=== PATIENT | male | born 1995 | race Caucasian/White ===

== ENCOUNTER 2017-03-31 04:27 | Inpatient (IN) | payer BC ==
[2017-03-27 11:40] LABS: BASOPHILS 0.4 %; BASOPHILS ABSOLUTE 0.03 10/3/uL (0.0-0.16); EOSINOPHILS 3.1 %; EOSINOPHILS ABSOLUTE 0.25 10/3/uL (0.0-0.53); IMMATURE GRANULOCYTES 0.1 %; IMMATURE GRANULOCYTES ABSOLUTE 0.01 10/3/uL (0.0-0.11); LYMPHOCYTES 34.7 %; LYMPHOCYTES ABSOLUTE 2.82 10/3/uL (0.67-4.30); MEAN PLATELET VOLUME 9.4 fL (9.2-13.0); MONOCYTES 7.8 %; MONOCYTES ABSOLUTE 0.63 10/3/uL (0.21-1.20); NEUTROPHILS 53.9 %; NEUTROPHILS ABSOLUTE 4.38 10/3/uL (2.02-8.40); RED CELL COUNT 4.75 10/6/uL (4.7-6.1); WHITE BLOOD CELLS 8.1 10/3/uL (4.5-10.5)
[2017-03-27 11:41] LABS: HEMATOCRIT 32.3 % (40.0-51.0); MANUAL DIFF NO %; MEAN CORPUSCULAR HEMOGLOB 21.1 pg (26.0-34.0); PLATELET COUNT 364 10/3/uL (150-400); RBC DISTRIBUTION WIDTH 18.8 % (12.0-16.0)
[2017-03-27 11:47] LABS: INTERNATIONAL NORMAL RATI 1.1 UNITS (-); PARTIAL THROMBO TIME 34.2 SEC (22.5-37.2); PROTIME (NOT ORD) 14.3 SEC (12.0-14.5)
[2017-03-27 11:54] LABS: ALBUMIN 3.6 G/DL (3.5-5.0); ALKALINE PHOSPHATASE 103 U/L (45-117); CALCIUM, SERUM 9.1 MG/DL (8.5-10.4); CHLORIDE, SERUM 105 MMOL/L (96-112); CO2 (CARBON DIOXIDE) 31 MMOL/L (24-34); CREATININE 0.88 MG/DL (0.70-1.30); GFR AFRICAN AMERICAN 140 ML/MIN (>=60); GFR NON AFRICAN AMERICAN 121 ML/MIN (>=60); GLOBULIN 3.6 G/DL (2.5-4.1); GLUCOSE, SERUM 93 MG/DL (60-99); POTASSIUM, SERUM 3.9 MMOL/L (3.5-5.3); SGOT(AST) 9 U/L (5-40); SGPT(ALT) 15 U/L (5-65); SODIUM, SERUM 141 MMOL/L (135-148); TOTAL BILIRUBIN 0.2 MG/DL (0-1.2); TOTAL PROTEIN 7.2 G/DL (6.0-8.5)
[2017-03-27 11:55] LABS: BUN (BLOOD UREA NITROGEN) 13 MG/DL (6-23)
[2017-03-27 11:57] LABS: ANISOCYTOSIS 1+ (5-10/OIF) (0-5/OIF); PLATELET ESTIMATE ADQ (ADEQUATE); RBC MORPHOLOGY ABN (NORMAL); TEARDROP SHAPED RBCS OCC (0-2/OIF)
[2017-03-27 12:23] LABS: CEA 4.1 NG/ML
--- NOTE | ~2017-03-31 | PREOPHP ---
PreOp History and Physical [place] [id number] [place] [place]. [address] NAME: CACHORRO CARR : 89 STATUS : ADM IN [facility]#: [id number] AGE: 21 ADM/REG DATE : 03/31/17 MR#: [id number] REPORT SERV DATE: 03/31/17 DICTATED BY: ABDIRASHID ADAIR III DATE: 03/25/17 REPORT STATUS : Draft TRANSCRIBED BY: MODL DATE: 03/25/17 HISTORY OF PRESENT ILLNESS: This 21-year-old male comes to the operating for laparoscopic transverse colectomy, possible laparotomy, for biopsy-proven cancer of the transverse colon. The patient recently was found to have anemia. He underwent colonoscopy. He was found to have a large obstructing mass of the distal transverse colon. His workup shows a possible mesenteric adenopathy with no evidence for distal disease. He comes now for laparoscopic distal transverse colectomy, possible laparotomy. The fact that this is a major operation with risk for major morbidity and mortality has been explained to the patient. 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 Consideration for total colectomy with reconstruction has been made with the patient. Based on the extent of his disease, it was felt that consideration for total colectomy should be made at a later date. The patient wishes to have his primary malignancy treated at this time and is not interested in total colectomy. PAST MEDICAL HISTORY: Essentially unremarkable. No history of diabetes, hypertension, cardiac or pulmonary disease. MEDICATIONS: None regularly. ALLERGIES: NONE. FAMILY HISTORY: Positive for multiple family members with colon cancer. SOCIAL HISTORY: The patient has a previous tobacco use. He has no history of alcohol use. REVIEW OF SYSTEMS: The patient's 14-point review of systems is essentially unremarkable. OBJECTIVE PHYSICAL EXAM: GENERAL: This is a male, in no acute distress. He is alert and oriented x3. VITAL SIGNS: Blood pressure 130/75, pulse 79, temperature 99.1. HEENT: Unremarkable. Cranial nerves 2 through 12 are normal. LUNGS: Clear. CARDIAC: Normal. ABDOMEN: Soft and nontender. No masses. EXTREMITIES: Normal without edema. LABORATORY DATA: Colonoscopy shows a large malignant-appearing mass at 80 cm. The colonoscope could not pass proximal to this. CT scan of the thorax, abdomen, and pelvis shows a large mass in the distal transverse colon with possible mesenteric adenopathy and no evidence for distal disease. Biopsy of the mass shows it to be a poorly differentiated adenocarcinoma. 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 PreOp History and Physical [address] [place]. [address] NAME: CACHORRO CARR : 93 STATUS : ADM IN PAT#: [id number] AGE: 21 ADM/REG DATE : 03/31/17 MR#: [id number] REPORT SERV DATE: 03/31/17 DICTATED BY: ABDIRASHID ADAIR III DATE: 03/25/17 REPORT STATUS : Draft TRANSCRIBED BY: JULIETTE DATE: 03/25/17 PLAN: The patient comes to the operating room now for laparoscopic transverse colectomy, possible laparotomy. The fact that this is a major operation with risk for major morbidity and mortality has been explained to the patient and family. The procedure, risks, benefits, and alternatives, including, but not limited to the risk for bleeding, infection, enterotomy, injury to any abdominal structure, postop small bowel obstruction, ileus, incisional hernia, dehiscence, anastomotic leak resulting in peritonitis, sepsis, and , and requiring reoperation, colostomy, injury to the spleen requiring splenectomy, ureteral injury, and unforeseen complications including deep venous thrombosis, pulmonary embolus, myocardial infarction, stroke, pneumonia, and , have been fully and completely explained to the patient and his family. The fact that this is a major operation with risk for major morbidity and mortality has been explained. The expected length of recovery has been explained. The patient had questions, which have been answered. He clearly understands the risks and agrees to surgery as planned. LOREN/JULIETTE Abdirashid Adair III, M.D. / [id number]
--- NOTE | ~2017-03-31 | OP ---
Record Of Operation [facility] [address] [place]. [address] NAME: CACHORRO CARR : 89 STATUS : ADM IN [facility]#: [id number] AGE: 21 ADM/REG DATE : 03/31/17 MR#: [id number] REPORT SERV DATE: 03/31/17 DICTATED BY: ABDIRASHID ACOSTA III DATE: 03/31/17 REPORT STATUS : Draft TRANSCRIBED BY: MODL DATE: 03/31/17 DATE OF PROCEDURE: 03/31/2017 PREOPERATIVE DIAGNOSIS: Biopsy-proven cancer of the distal transverse colon. POSTOPERATIVE DIAGNOSIS: Biopsy-proven cancer of the distal transverse colon. PROCEDURE: Laparoscopic resection of distal transverse colon. SURGEON: Abdirashid Aocsta M.D. ANESTHESIA: General with intubation. COMPLICATIONS: None. ESTIMATED BLOOD LOSS: 30 mL. SPECIMENS: Distal transverse colon. DRAINS: New in the subcutaneous tissue. LAP AND SPONGE COUNT: Correct x3. BRIEF HISTORY: This 21-year-old male presented with a biopsy-proven obstructing cancer of the distal transverse colon. His workup showed no evidence for metastatic disease. It was felt that laparoscopic resection of the involved portion of the colon, possible laparotomy, was indicated. This procedure, the risks, benefits, and alternatives, including but not limited to the risk of bleeding, infection, enterotomy, injury to abdominal structure, postop small bowel obstruction, ileus, incisional hernia, dehiscence, injury to the spleen requiring splenectomy, ureteral injury, anastomotic leak requiring reoperation, colostomy, and unforeseen complications including deep venous thrombosis, pulmonary embolus, myocardial infarction, stroke, pneumonia, and , were fully and completely explained to the patient and his family prior to surgery. The fact that this was a major operation with risk for major morbidity and mortality was explained as well as the expected length of recovery of both open and laparoscopic procedures. The patient had questions which were answered. He understood the risks and agreed to the surgery as planned. FINDINGS: The patient had an extremely large cancer of the distal transverse colon. There was no evidence for carcinomatosis or peritoneal implants. The resection was performed with clear margins. PROCEDURE IN DETAIL: After being properly identified and after discussing the risks of surgery with the patient and his family again in the preoperative area, the patient was taken to the operating room and placed in the supine position on the operating room table. General anesthesia was administered and he was intubated without difficulty. A Cutler catheter was inserted. The abdomen was prepped and draped sterilely in the usual fashion. Record Of Operation [facility] [address] [place]. [address] NAME: CACHORRO CARR : 93 STATUS : ADM IN PAT#: [id number] AGE: 21 ADM/REG DATE : 03/31/17 MR#: [id number] REPORT SERV DATE: 03/31/17 DICTATED BY: ABDIRASHID ACOSTA III DATE: 03/31/17 REPORT STATUS : Draft TRANSCRIBED BY: MODL DATE: 03/31/17 After an appropriate "time-out" per [facility] standards, a small incision was made just below the umbilicus. The skin and fascia on either side of this were elevated with towel clips. A Veress needle was placed through the incision into the peritoneal cavity. Correct position of the needle in the peritoneal cavity was confirmed by the hanging drop test. The abdominal cavity was then insufflated to about 13 mmHg of carbon dioxide. Correct position of air in the peritoneal cavity was confirmed by palpation. The Veress needle was removed and replaced with a 10 mm trocar. The laparoscope was placed through this. The patient was placed in the reverse Trendelenburg position. The abdomen was inspected. The tumor was identified at the distal transverse colon. It was marked by the endoscopist. There was no evidence for peritoneal implants or metastatic disease. A 5 mm trocar was then placed along the left lateral abdominal wall lateral to the navel and another one placed in the left upper quadrant. These were placed under direct vision with the laparoscope. Appropriate instruments were placed through the trocars. The transverse colon was elevated. Using sharp dissection, the omentum was carefully dissected away from the transverse colon in the appropriate area. The colon was very mobile. After adequate mobilization, a small incision was made along the left subcostal margin, directly over the tumor, about 2 cm below the costal margin. The incision was continued through the subcutaneous tissue. Hemostasis was controlled with cautery. The incision was continued through all layers of fascia. The distal transverse colon was mobilized into the wound. The patient had obvious large cancer in this area. We selected for division of the transverse colon at 4 to 5 cm proximal to the tumor. A window was made in the mesentery of the colon at this point. A OLEG stapler was used about the colon at this point. We then selected a point for division of the colon distal to the tumor, by 4 to 5 cm. A window was made in the mesentery to the colon at this point and the colon was divided at this point. It should be noted that the patient's transverse colon was very long and redundant. The mesentery to this portion of the colon was then divided using Harmonic scalpel. The gastrocolic ligament was also divided and flushed with the stomach. The mesentery was divided at its base so as to perform a correct oncologic dissection to the lymphovascular supply to this portion of the colon. This portion of the colon was thus removed and oriented with sutures and sent to pathology. It was interpreted as containing the tumor with clear margins. We then performed a [id number] anastomosis between the divided proximal and distal colon. This was performed by aligning the antimesenteric border of the colon proximally and distally with interrupted 3-0 silk sutures. A small opening was then made in the antimesenteric border of the colon proximally and distally and a OLEG stapler was placed through this and fired. The defect created by the stapler was then closed in two layers, using running 3-0 chromic suture on the inner layer and interrupted 3-0 silk sutures on the outer anterior layer. The stapled end of each portion of the colon was also oversewn with interrupted 3-0 silk sutures. Upon completion of this, the anastomosis was widely patent to palpation, it was not twisted or kinked in anyway and was not under any tension. The area was irrigated copiously with saline. Hemostasis was assured. The fascia was closed with a running looped #1 PDS suture. The subcutaneous tissue was closed with running 3-0 chromic Record Of Operation [facility] [address] [facility] [place]. [address] NAME: CACHORRO CARR FILEMON : 89 STATUS : ADM IN [facility]#: [id number] AGE: 21 ADM/REG DATE : 03/31/17 MR#: [id number] REPORT SERV DATE: 03/31/17 DICTATED BY: ABDIRASHID ACOSTA III DATE: 03/31/17 REPORT STATUS : Draft TRANSCRIBED BY: MODL DATE: 03/31/17 suture over a New drain which was brought through the inferior aspect of the incision. The subcutaneous tissue was closed with a running 3-0 chromic suture over a [place] drain which was brought out through the lateral aspect of the incision. The skin was closed with running subcuticular 4-0 Monocryl stitch. Dressings were applied. Anesthesia was reversed. The patient was taken to the recovery room in stable condition. The infraumbilical incision was closed by closing the fascia with a 0 Vicryl suture. All trocar sites and skin incisions were closed with running subcuticular 4-0 Monocryl stitches. They were injected with 0.5% Marcaine. Dressings were applied. Anesthesia was reversed. The patient was taken to the recovery room in stable condition. He tolerated the procedure well. His family was informed of the results of surgery. The patient will remain in the hospital for postoperative care. RHJ/MODL Abdirashid Acosta III, M.D. / [id number] CC: Skyler Matos III, M.D.
[~2017-03-31 04:27] MED LIST: XYZAL5 MG PO
[2017-04-01 06:24] LABS: BASOPHILS 0.1 %; BASOPHILS ABSOLUTE 0.01 10/3/uL (0.0-0.16); EOSINOPHILS 0.2 %; EOSINOPHILS ABSOLUTE 0.02 10/3/uL (0.0-0.53); HEMATOCRIT 31.4 % (40.0-51.0); HEMOGLOBIN 9.8 g/dL (13.6-17.8); IMMATURE GRANULOCYTES 0.2 %; IMMATURE GRANULOCYTES ABSOLUTE 0.02 10/3/uL (0.0-0.11); LYMPHOCYTES ABSOLUTE 1.97 10/3/uL (0.67-4.30); MEAN CORPUS HGB CONC 31.2 g/dL (32.0-36.0); MEAN CORPUSCULAR HEMOGLOB 21.3 pg (26.0-34.0); MEAN CORPUSCULAR VOLUME 68.1 fL (80-100); MEAN PLATELET VOLUME 9.5 fL (9.2-13.0); MONOCYTES 14.4 %; MONOCYTES ABSOLUTE 1.35 10/3/uL (0.21-1.20); NEUTROPHILS 64.1 %; NEUTROPHILS ABSOLUTE 5.99 10/3/uL (2.02-8.40); PLATELET COUNT 366 10/3/uL (150-400); RBC DISTRIBUTION WIDTH 18.8 % (12.0-16.0); RED CELL COUNT 4.61 10/6/uL (4.7-6.1); WHITE BLOOD CELLS 9.4 10/3/uL (4.5-10.5)
[2017-04-01 06:27] LABS: MANUAL DIFF NO %
[2017-04-01 06:36] LABS: BUN (BLOOD UREA NITROGEN) 4 MG/DL (6-23); CALCIUM, SERUM 8.9 MG/DL (8.5-10.4); CHLORIDE, SERUM 110 MMOL/L (96-112); CO2 (CARBON DIOXIDE) 27 MMOL/L (24-34); CREATININE 0.78 MG/DL (0.70-1.30); GFR AFRICAN AMERICAN 147 ML/MIN (>=60); GFR NON AFRICAN AMERICAN 127 ML/MIN (>=60); GLUCOSE, SERUM 140 MG/DL (60-99); SODIUM, SERUM 144 MMOL/L (135-148)
[2017-04-01 07:13] LABS: ANISOCYTOSIS 1+ (5-10/OIF) (0-5/OIF); PLATELET ESTIMATE ADQ (ADEQUATE)
[2017-04-01 07:14] LABS: POLYCHROMASIA 1+ (2-5/OIF) (0-1/OIF)
[2017-04-01 07:15] LABS: HYPOCHROMIA 1+ (3-10/OIF) (0-2/OIF); OVALOCYTES 1+ (3-10/OIF) (0-2/OIF)
[2017-04-02 06:14] LABS: BASOPHILS 0.3 %; BASOPHILS ABSOLUTE 0.03 10/3/uL (0.0-0.16); EOSINOPHILS 1.6 %; EOSINOPHILS ABSOLUTE 0.17 10/3/uL (0.0-0.53); HEMATOCRIT 33.7 % (40.0-51.0); HEMOGLOBIN 10.3 g/dL (13.6-17.8); IMMATURE GRANULOCYTES 0.2 %; IMMATURE GRANULOCYTES ABSOLUTE 0.02 10/3/uL (0.0-0.11); LYMPHOCYTES 35.2 %; LYMPHOCYTES ABSOLUTE 3.78 10/3/uL (0.67-4.30); MANUAL DIFF NO %; MEAN CORPUS HGB CONC 30.6 g/dL (32.0-36.0); MEAN CORPUSCULAR HEMOGLOB 21.1 pg (26.0-34.0); MEAN CORPUSCULAR VOLUME 69.1 fL (80-100); MEAN PLATELET VOLUME 9.2 fL (9.2-13.0); MONOCYTES 8.8 %; MONOCYTES ABSOLUTE 0.95 10/3/uL (0.21-1.20); NEUTROPHILS 53.9 %; NEUTROPHILS ABSOLUTE 5.79 10/3/uL (2.02-8.40); PLATELET COUNT 404 10/3/uL (150-400); RBC DISTRIBUTION WIDTH 19.6 % (12.0-16.0); RED CELL COUNT 4.88 10/6/uL (4.7-6.1); WHITE BLOOD CELLS 10.7 10/3/uL (4.5-10.5)
[2017-04-02 06:27] LABS: BUN (BLOOD UREA NITROGEN) 3 MG/DL (6-23); CALCIUM, SERUM 9.1 MG/DL (8.5-10.4); CHLORIDE, SERUM 110 MMOL/L (96-112); CO2 (CARBON DIOXIDE) 31 MMOL/L (24-34); CREATININE 0.77 MG/DL (0.70-1.30); GFR AFRICAN AMERICAN 148 ML/MIN (>=60); GFR NON AFRICAN AMERICAN 128 ML/MIN (>=60); GLUCOSE, SERUM 94 MG/DL (60-99); POTASSIUM, SERUM 3.6 MMOL/L (3.5-5.3); SODIUM, SERUM 143 MMOL/L (135-148)
[2017-04-02 06:33] LABS: ANISOCYTOSIS 1+ (5-10/OIF) (0-5/OIF); PLATELET ESTIMATE SLT INC (ADEQUATE)
[2017-04-02] MEDS ORDERED: PERCOCET 7.5/321 TAB PO (08:31)
[2017-04-24] MEDS ORDERED: X5 PO (15:25)
== END 2017-04-02 14:34 | disposition home or self-care (01) | DRG 330 ==
LOC: SDC/OF 04:27 → PACU 09:01 → 5SO 11:59
PROVIDERS: Surgery
PROC: 0DBL4ZZ Excision of Transverse Colon, Percutaneous Endoscopic Approach (ICD-10-PCS; principal; 2017-03-31 06:45)
DX: C18.4 Malignant neoplasm of transverse colon (principal); C77.2 Secondary and unspecified malignant neoplasm of intra-abdominal lymph nodes; D64.9 Anemia, unspecified; Z80.0 Family history of malignant neoplasm of digestive organs
CPT/HCPCS: 36415; 71020; 80048; 80053; 82378; 85025; 85610; 85730; 86850; 86900; 86901; 88307; 88309; 88313; 93005; A9270-GY; J0690; J1170; J1885; J2250; J2270; J2405; J2550; J2710; J2795; J3010; P9045

== ENCOUNTER 2017-04-04 19:36 | Inpatient (IN) | payer BC ==
--- NOTE | ~2017-04-04 | HP ---
History And Physical [address] [place]. [address] NAME: CACHORRO CARR : 93 STATUS : ADM IN [facility]#: [id number] AGE: 21 ADM/REG DATE : 04/04/17 MR#: [id number] REPORT SERV DATE: 04/05/17 DICTATED BY: ABDIRASHID ACOSTA III DATE: 04/05/17 REPORT STATUS : Draft TRANSCRIBED BY: MODL DATE: 04/05/17 DATE OF ADMISSION: 04/04/2017 HISTORY OF PRESENT ILLNESS: This 21-year-old was admitted hospital emergently with nausea and vomiting. The patient complains of a one-day history of crampy abdominal pain. This has been associated with profuse nausea and vomiting. Based on these symptoms, I felt that emergent admission to the hospital is indicated. The patient is status post a recent transverse colectomy for a large cancer of the transverse colon. The patient's postoperative recovery was uneventful. At the time of discharge, he was tolerating diet well with normal bowel function. The patient states that these symptoms began on the day of admission. The patient has had no fever or chills. He has had no diarrhea. PAST MEDICAL HISTORY: History of transverse colon cancer, status post recent laparoscopic transverse colectomy with primary anastomosis with good recovery. This was a large cancer, with final pathology showing this to be a T3 N1a cancer. MEDICATIONS: None regularly. ALLERGIES: NONE. FAMILY HISTORY: Positive for multiple family members with colon cancer. SOCIAL HISTORY: The patient has a previous history of tobacco use. He has no history of alcohol use. He is not . REVIEW OF SYSTEMS: Patient's 14-point review of systems is otherwise unremarkable. PHYSICAL EXAMINATION: GENERAL: This is a male, in no acute distress. He is alert and oriented x3. VITAL SIGNS: Blood pressure 131/79, temperature 98.6, pulse 92. HEENT: Unremarkable. Cranial nerves 2 through 12 are normal. LUNGS: Clear. CARDIAC: Normal. ABDOMEN: Soft, nontender. He has a well-healed left subcostal incision. EXTREMITIES: Normal with no edema. LABORATORY DATA: Electrolytes are unremarkable. Glucose is 121. White blood cell count 9.4. KUB shows a benign gas pattern. ASSESSMENT: 1. A 21-year-old male with nausea and vomiting, most likely secondary to ileus. 2. History of a T3 N1 colon cancer, status post recent laparoscopic transverse colectomy. PLAN: The patient has been admitted and started on parenteral fluids and bowel rest. If he has further vomiting, an NG-tube will be placed. I have started the patient on Reglan. At [facility] [address] [place] [address] NAME: CACHORRO CARR : 89 STATUS : ADM IN [facility]#: [id number] AGE: 21 ADM/REG DATE : 04/04/17 MR#: [id number] REPORT SERV DATE: 04/05/17 DICTATED BY: ABDIRASHID ACOSTA III DATE: 04/05/17 REPORT STATUS : Draft TRANSCRIBED BY: JULIETTE DATE: 04/05/17 this time, there is no need for acute surgical intervention. This plan has been explained to the patient. His questions have been answered. He understands and agrees to this as planned. Mary Alice/JULIETTE Abdirashid Acosta III, M.D. / [id number] CC: Skyler Matos III, MICHAEL F
--- NOTE | ~2017-04-04 | DS ---
Discharge Summary [facility] [address] [facility] [place]. [address] NAME: CACHORRO CARR : 89 STATUS : DIS IN PAT#: [id number] AGE: 21 ADM/REG DATE : 04/04/17 MR#: [id number] REPORT SERV DATE: 04/15/17 DICTATED BY: ABDIRASHID ACOSTA III DATE: 04/15/17 REPORT STATUS : Draft TRANSCRIBED BY: JULIETTE DATE: 04/15/17 Data Collection from hospitalization DISCHARGE DIAGNOSES: 1. Status post ileus or small-bowel obstruction-resolved. 2. History of transverse colon cancer, status post recent laparoscopic transverse colectomy with primary anastomosis. 3. Former tobacco. CONSULTATIONS: None. PROCEDURES: None. DISCHARGE MEDICATIONS: Sera 180 mg daily. CONDITION AT DISCHARGE: Stable. DISPOSITION: The patient was discharged home on a regular diet with activities as instructed. He would follow up with me in one to two weeks following discharge. HOSPITAL COURSE: This is a 21-year-old man, who was admitted to the hospital emergently with nausea and vomiting. He complained of a one-day history of crampy abdominal pain. This was associated with profuse nausea and vomiting. Based on his symptoms, it was felt that emergent admission to the hospital was indicated. The patient is status post recent transverse colectomy for a large cancer of the transverse colon. His postoperative recovery had been uneventful. At the time of discharge, he was tolerating his diet well and had normal bowel function. The patient said that his symptoms began on the day of this admission. He had no fever or chills and has had no diarrhea. He was admitted to the hospital for further evaluation and treatment. Upon admission, electrolytes were unremarkable. White count was 9.4. KUB showed a benign gas pattern. The patient has a history of T3 N1 colon cancer. He is started on parental fluids and bowel rest. If he had any further vomiting, we would place an NG tube. He was started on Reglan. At this time, it was felt that there was no need for acute surgical intervention. The following day, he had some nausea after receiving a morphine injection. Protonix was being given. He was placed on Percocet. He was going to be placed on clear liquids. We would advance his diet as tolerated. Discharge planning was performed. On 04/07/2017, he said he was feeling much better and wanted to go home. He was eating well. He had no further nausea or vomiting. He had no abdominal pain. Discharge instructions were given. Due to his improved and stable condition, he was discharged home with the above stated instructions. Information collected by: Anne Clark I submit the above information as my discharge summary. TG/MODL Discharge Summary [address] [address] NAME: CACHORRO CARR : 93 STATUS : DIS IN PAT#: [id number] AGE: 21 ADM/REG DATE : 04/04/17 MR#: [id number] REPORT SERV DATE: 04/15/17 DICTATED BY: ABDIRASHID ACOSTA III DATE: 04/15/17 REPORT STATUS : Draft TRANSCRIBED BY: JULIETTE DATE: 04/15/17 Abdirashid Acosta III, M.D. / [id number] CC: Skyler Matos III, MICHAEL F
[~2017-04-04 19:36] MED LIST changes: +PERCOCET 7.5/321 TAB PO
[2017-04-05 05:48] LABS: BASOPHILS 0.2 %; BASOPHILS ABSOLUTE 0.02 10/3/uL (0.0-0.16); EOSINOPHILS 4.3 %; HEMATOCRIT 31.5 % (40.0-51.0); HEMOGLOBIN 9.7 g/dL (13.6-17.8); IMMATURE GRANULOCYTES 0.2 %; IMMATURE GRANULOCYTES ABSOLUTE 0.02 10/3/uL (0.0-0.11); LYMPHOCYTES 19.6 %; LYMPHOCYTES ABSOLUTE 1.84 10/3/uL (0.67-4.30); MEAN CORPUS HGB CONC 30.8 g/dL (32.0-36.0); MEAN PLATELET VOLUME 9.1 fL (9.2-13.0); MONOCYTES 8.1 %; MONOCYTES ABSOLUTE 0.76 10/3/uL (0.21-1.20); NEUTROPHILS 67.6 %; NEUTROPHILS ABSOLUTE 6.33 10/3/uL (2.02-8.40); PLATELET COUNT 340 10/3/uL (150-400); RBC DISTRIBUTION WIDTH 19.6 % (12.0-16.0); RED CELL COUNT 4.63 10/6/uL (4.7-6.1); WHITE BLOOD CELLS 9.4 10/3/uL (4.5-10.5)
[2017-04-05 05:52] LABS: MANUAL DIFF NO %
[2017-04-05 06:04] LABS: A/G RATIO 0.8 (0.7-1.9); ALBUMIN 3.1 G/DL (3.5-5.0); ALKALINE PHOSPHATASE 92 U/L (45-117); BUN (BLOOD UREA NITROGEN) 11 MG/DL (6-23); CHLORIDE, SERUM 104 MMOL/L (96-112); CO2 (CARBON DIOXIDE) 28 MMOL/L (24-34); GFR AFRICAN AMERICAN 164 ML/MIN (>=60); GFR NON AFRICAN AMERICAN 142 ML/MIN (>=60); GLOBULIN 3.7 G/DL (2.5-4.1); GLUCOSE, SERUM 121 MG/DL (60-99); SGOT(AST) 217 U/L (5-40); SGPT(ALT) 192 U/L (5-65); SODIUM, SERUM 138 MMOL/L (135-148); TOTAL BILIRUBIN 0.2 MG/DL (0-1.2); TOTAL PROTEIN 6.8 G/DL (6.0-8.5)
[2017-04-05 06:21] LABS: ANISOCYTOSIS 1+ (5-10/OIF) (0-5/OIF); PLATELET ESTIMATE ADQ (ADEQUATE)
[2017-04-06 05:24] LABS: BASOPHILS 0.2 %; BASOPHILS ABSOLUTE 0.02 10/3/uL (0.0-0.16); EOSINOPHILS 5.1 %; EOSINOPHILS ABSOLUTE 0.42 10/3/uL (0.0-0.53); HEMATOCRIT 30.8 % (40.0-51.0); HEMOGLOBIN 9.6 g/dL (13.6-17.8); IMMATURE GRANULOCYTES 0.1 %; IMMATURE GRANULOCYTES ABSOLUTE 0.01 10/3/uL (0.0-0.11); LYMPHOCYTES 21.7 %; MEAN CORPUS HGB CONC 31.2 g/dL (32.0-36.0); MEAN CORPUSCULAR HEMOGLOB 21.2 pg (26.0-34.0); MEAN PLATELET VOLUME 9.2 fL (9.2-13.0); MONOCYTES 9.5 %; MONOCYTES ABSOLUTE 0.79 10/3/uL (0.21-1.20); NEUTROPHILS 63.4 %; NEUTROPHILS ABSOLUTE 5.24 10/3/uL (2.02-8.40); PLATELET COUNT 357 10/3/uL (150-400); RBC DISTRIBUTION WIDTH 19.6 % (12.0-16.0); RED CELL COUNT 4.53 10/6/uL (4.7-6.1); WHITE BLOOD CELLS 8.3 10/3/uL (4.5-10.5)
[2017-04-06 05:27] LABS: MANUAL DIFF NO %
[2017-04-06 05:45] LABS: CALCIUM, SERUM 9.2 MG/DL (8.5-10.4); CHLORIDE, SERUM 105 MMOL/L (96-112); CO2 (CARBON DIOXIDE) 27 MMOL/L (24-34); CREATININE 0.55 MG/DL (0.70-1.30); GFR AFRICAN AMERICAN 170 ML/MIN (>=60); GFR NON AFRICAN AMERICAN 147 ML/MIN (>=60); GLUCOSE, SERUM 127 MG/DL (60-99); POTASSIUM, SERUM 3.9 MMOL/L (3.5-5.3); SODIUM, SERUM 138 MMOL/L (135-148)
[2017-04-06 05:46] LABS: BUN (BLOOD UREA NITROGEN) 4 MG/DL (6-23)
[2017-04-06 06:18] LABS: ANISOCYTOSIS 1+ (5-10/OIF) (0-5/OIF); PLATELET ESTIMATE ADQ (ADEQUATE)
[2017-04-06 06:21] LABS: OVALOCYTES 1+ (3-10/OIF) (0-2/OIF)
[2017-04-24] MEDS ORDERED: X5 PO (15:25)
== END 2017-04-07 08:20 | disposition home or self-care (01) | DRG 389 ==
LOC: 4EA 19:36
PROVIDERS: Surgery
DX: K56.7 Ileus, unspecified (principal); C18.9 Malignant neoplasm of colon, unspecified
CPT/HCPCS: 74000; 74020; 80048; 80053; 85025; A9270-GY; C9113; J2405; J2765

== ENCOUNTER 2017-04-25 10:04 | Day surgery (SDC) | payer BC ==
--- NOTE | ~2017-04-25 | OP ---
Record Of Operation [facility] [address] [place]. [address] NAME: CACHORRO CARR : 89 STATUS : [facility]#: [id number] AGE: 21 ADM/REG DATE : 04/25/17 MR#: [id number] REPORT SERV DATE: 04/25/17 DICTATED BY: ABDIRASHID ACOSTA III DATE: 04/25/17 REPORT STATUS : Draft TRANSCRIBED BY: MODLissy DATE: 04/25/17 DATE OF PROCEDURE: 04/25/2017 PREOPERATIVE DIAGNOSIS: Colorectal cancer, with need for Port-A-Cath placement to allow for chronic IV access for chemotherapy. POSTOPERATIVE DIAGNOSIS: Colorectal cancer, with need for Port-A-Cath placement to allow for chronic IV access for chemotherapy. PROCEDURE: Left subclavian Port-A-Cath placement with fluoroscopy. ANESTHESIA: General with intubation. COMPLICATIONS: None. ESTIMATED BLOOD LOSS: Less than 5 mL. SPECIMENS: None. DRAINS: None. LAP AND SPONGE COUNT: Correct x3. BRIEF HISTORY: This 21-year-old male was recently diagnosed with the colorectal cancer. The patient has completed surgical treatment and is felt by his medical oncologist that Port-A- Cath placement was indicated to allow for chronic IV access for chemotherapy. This procedure, the risks, benefits, and alternatives, including not limited to the risk for bleeding, infection, pneumothorax, air embolus, pericardial tamponade, failure of the port to function, infection of the port, or subclavian vein thrombosis requiring removal the port, dislodgement of the Port-A-Cath tubing requiring extraction, and unforeseen complications including deep venous thrombosis, pulmonary embolus, myocardial infarction, stroke, pneumonia, and , were explained to the patient prior to surgery. His questions were answered. He understood the risks and agreed to surgery as planned. The patient requested the port be placed on the left side if possible. DESCRIPTION OF PROCEDURE: After being properly identified and after discussing risks of surgery with the patient and family again in the preoperative area, he was taken to the operating room and placed in the supine position on the operating room table. General anesthesia was administered, and he was intubated without difficulty. The upper chest and neck areas were prepped and draped sterilely in the usual fashion. After an appropriate "time-out" per JCAHO standards, an 18-gauge needle was used to identify the left subclavian vein. The vein was identified on the first pass of the needle. A guidewire was passed through the needle and the needle was removed. Fluoroscopy was performed, confirming the tip of the guidewire to be in the correct position in the superior vena cava. A small transverse incision was then made at the exit site of the guidewire from the skin. A subcutaneous infraclavicular pocket was made of the appropriate size for the Port-A-Cath Record Of [address] [address] NAME: CACHORRO CARR : 89 STATUS : [facility] PAT#: [id number] AGE: 21 ADM/REG DATE : 04/25/17 MR#: [id number] REPORT SERV DATE: 04/25/17 DICTATED BY: ABDIRASHID ACOSTA III DATE: 04/25/17 REPORT STATUS : Draft TRANSCRIBED BY: JULIETTE DATE: 04/25/17 housing. The Port-A-Cath housing and tubing were assembled, flushed with a heparin solution and the tubing cut to the appropriate length. The introducer was then placed over the guidewire. The guidewire and inner dilator were removed. The Port-A-Cath tubing was then passed through the sheath as the sheath was peeled away. This went very smoothly. The Port A-Cath housing was positioned in the infraclavicular pocket. It was secured in place with 2 0 silk sutures. Repeat fluoroscopy was performed, confirming the tip of the Port-A-Cath tubing to be in the correct position in the superior vena cava. Hemostasis was assured. The port was accessed with a Barron needle. It was noted to aspirate blood easily. It was then flushed with heparin solution, noted to flush easily. Hemostasis was assured. The subcutaneous tissue was closed with running 3-0 Vicryl suture. The skin was closed with running subcuticular 4-0 Monocryl stitch. The incision was injected with 0.5% Marcaine. Dressings were applied. Anesthesia was reversed. The patient was taken to the recovery room in stable condition. He tolerated the procedure well. His family was informed results of surgery. The patient was discharged in stable and comfortable and after a chest x-ray has been cleared per Radiology. His family was advised that they should keep the wound clean and dry for [address] should not drive for two to three days after surgery or while using narcotics and that he should resume his usual medications. He has been asked to return in two weeks for followup or sooner for any fever, chills, wound drainage, or other problems prior that time. He was given a prescription for Percocet 7.5 one t.i.d., #12, as needed for pain, which he was advised not to use while driving. LOREN/JULIETTE Abdirashid Acosta III, M.D. / [id number] CC: Skyler Matos III, MICHAEL F
--- NOTE | ~2017-04-25 | PREOPHP ---
PreOp History and Physical [id number] [place]. [address] NAME: CACHORRO CARR : 89 STATUS : PRE [facility]#: [id number] AGE: 21 ADM/REG DATE : MR#: [id number] REPORT SERV DATE: 04/24/17 DICTATED BY: ABDIRASHID ADAIR III DATE: 04/24/17 REPORT STATUS : Draft TRANSCRIBED BY: MODL DATE: 04/24/17 HISTORY OF PRESENT ILLNESS: This 21-year-old male comes to the operating room for subclavian vein Port-A-Cath placement for chronic IV access for chemotherapy. 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 He is status post transverse colectomy performed on 03/31/2017, for a T3 N1 M0 colon cancer. He comes now for subclavian vein Port-A-Cath placement to allow for chronic IV access for chemotherapy. PAST MEDICAL HISTORY: Essentially unremarkable otherwise. 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 MEDICATIONS: None regularly. ALLERGIES: NONE. SOCIAL HISTORY: The patient has no history of tobacco or alcohol use. He is not . REVIEW OF SYSTEMS: The patient's 14-point review of systems is otherwise unremarkable. He did have obstructive symptoms with nausea and vomiting prior to surgery due to obstruction from his colon cancer. PHYSICAL EXAMINATION: GENERAL: This is a male, in no acute distress. He is alert and oriented x3. HEENT: Unremarkable. NEURO: Cranial cervical 2 through 12 are normal. LUNGS: Clear. CARDIAC: Normal. ABDOMEN: Soft. Nontender. No masses. VITAL SIGNS: Blood pressure 115/66, temperature 97.2, pulse 87. ASSESSMENT: A 21-year-old male with a transverse colon cancer, with need for subclavian vein Port-A-Cath placement to allow for chronic IV access for chemotherapy. PLAN: The patient comes to the operating room now for subclavian vein Port-A-Cath placement. This procedure, the risks, benefits, and alternatives, including not limited to the risk for bleeding, infection, pneumothorax, air embolus, pericardial tamponade, failure of the port to function, infection of the port or subclavian vein thrombosis requiring removal of the port, dislodgement of the Port-A-Cath tubing requiring extraction, and unforeseen complications including deep venous thrombosis, pulmonary embolus, myocardial infarction, stroke, pneumonia, and , have been explained to the patient prior to surgery. His questions have been answered. He understands the risks and agrees to the surgery as planned. LOREN/JULIETTE Abdirashid Pre History and Physical [address] [address] NAME: CACHORRO CARR : 89 STATUS : PRE [facility] [place] PAT#: [id number] AGE: 21 ADM/REG DATE : MR#: [id number] REPORT SERV DATE: 04/24/17 DICTATED BY: ABDIRASHID ADAIR III DATE: 04/24/17 REPORT STATUS : Draft TRANSCRIBED BY: JULIETTE DATE: 04/24/17 Vicente Adair III, M.D. / [id number]
[~2017-04-25 10:04] MED LIST changes: +X5 PO
[2017-04-25 10:40] LABS: BASOPHILS 0.2 %; BASOPHILS ABSOLUTE 0.01 10/3/uL (0.0-0.16); EOSINOPHILS 3.1 %; HEMATOCRIT 33.3 % (40.0-51.0); HEMOGLOBIN 10.1 g/dL (13.6-17.8); IMMATURE GRANULOCYTES 0.2 %; IMMATURE GRANULOCYTES ABSOLUTE 0.01 10/3/uL (0.0-0.11); LYMPHOCYTES 35.6 %; LYMPHOCYTES ABSOLUTE 2.31 10/3/uL (0.67-4.30); MANUAL DIFF NO %; MEAN CORPUS HGB CONC 30.3 g/dL (32.0-36.0); MEAN CORPUSCULAR HEMOGLOB 20.4 pg (26.0-34.0); MEAN CORPUSCULAR VOLUME 67.4 fL (80-100); MEAN PLATELET VOLUME 8.7 fL (9.2-13.0); MONOCYTES 9.4 %; MONOCYTES ABSOLUTE 0.61 10/3/uL (0.21-1.20); NEUTROPHILS 51.5 %; NEUTROPHILS ABSOLUTE 3.34 10/3/uL (2.02-8.40); PLATELET COUNT 320 10/3/uL (150-400); RBC DISTRIBUTION WIDTH 19.7 % (12.0-16.0); RED CELL COUNT 4.94 10/6/uL (4.7-6.1); WHITE BLOOD CELLS 6.5 10/3/uL (4.5-10.5)
[2017-04-25 10:52] LABS: ALKALINE PHOSPHATASE 92 U/L (45-117); CALCIUM, SERUM 9.2 MG/DL (8.5-10.4); CHLORIDE, SERUM 109 MMOL/L (96-112); CO2 (CARBON DIOXIDE) 31 MMOL/L (24-34); CREATININE 0.75 MG/DL (0.70-1.30); GFR AFRICAN AMERICAN 150 ML/MIN (>=60); GFR NON AFRICAN AMERICAN 129 ML/MIN (>=60); GLOBULIN 3.7 G/DL (2.5-4.1); POTASSIUM, SERUM 4.5 MMOL/L (3.5-5.3); SGOT(AST) 19 U/L (5-40); SGPT(ALT) 39 U/L (5-65); SODIUM, SERUM 143 MMOL/L (135-148); TOTAL BILIRUBIN 0.3 MG/DL (0-1.2); TOTAL PROTEIN 7.5 G/DL (6.0-8.5)
[2017-04-25 10:54] LABS: ALBUMIN 3.8 G/DL (3.5-5.0); BUN (BLOOD UREA NITROGEN) 14 MG/DL (6-23); GLUCOSE, SERUM 89 MG/DL (60-99)
[2017-04-25 11:02] LABS: PLATELET ESTIMATE ADQ (ADEQUATE)
[2017-04-25 11:03] LABS: ANISOCYTOSIS 1+ (5-10/OIF) (0-5/OIF)
[2017-04-25 11:04] LABS: POIKILOCYTOSIS 1+ (5-10/OIF) (0-5/OIF); POLYCHROMASIA 1+ (2-5/OIF) (0-1/OIF)
[2017-04-25 11:05] LABS: OVALOCYTES 1+ (3-10/OIF) (0-2/OIF)
== END 2017-04-25 17:55 | disposition home or self-care (01) ==
LOC: SDC 10:04
PROVIDERS: Surgery
PROC: 05H633Z Insertion of Infusion Device into Left Subclavian Vein, Percutaneous Approach (ICD-10-PCS; 2017-04-25)
PROC: B517ZZA Fluoroscopy of Left Subclavian Vein, Guidance (ICD-10-PCS; 2017-04-25)
PROC: 0JH60XZ Insertion of Tunneled Vascular Access Device into Chest Subcutaneous Tissue and Fascia, Open Approach (ICD-10-PCS; principal; 2017-04-25 12:15)
DX: C19 Malignant neoplasm of rectosigmoid junction (principal); I10 Essential (primary) hypertension; Z87.891 Personal history of nicotine dependence
CPT/HCPCS: 71010; 77001; 80053; 85025; C1751; J0690; J1170; J2250; J2405; J3010; Q9967